=== PATIENT | male | born 1955 | race Caucasian/White ===

== ENCOUNTER 2017-11-14 12:37 | Day surgery (SDC) | payer OTHER ==
[2017-11-14] MEDS ORDERED: PROPOFOL 40 ML (13:53)
[2017-11-14] MEDS ORDERED: LIDOCAINE 2% (SDV) 5 ML INJ (13:53)
[2017-11-14] MEDS ORDERED: PROPOFOL 20 ML ×2 (14:56)
== END 2017-11-14 16:22 | disposition home or self-care (01) ==
LOC: GIL 12:37
DX: Z12.11 Encounter for screening for malignant neoplasm of colon (principal); D12.2 Benign neoplasm of ascending colon; D12.7 Benign neoplasm of rectosigmoid junction; K57.30 Diverticulosis of large intestine without perforation or abscess without bleeding
CPT/HCPCS: 45380; 88305